=== PATIENT | female | born 1970 | race Asian ===

== ENCOUNTER 2021-04-01 18:43 | Emergency (ER) | payer BC ==
[~2021-04-01] VITALS: Ht 154.9 cm; Wt 68.0 kg
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
[2021-04-01] MEDS ORDERED: LIDOCAINE HCL/MPF 1% 30 ML VIAL IJ ONE (19:05)
[2021-04-01] MEDS ORDERED: ACET-2605 PO (19:17)
[2021-04-01] MEDS ORDERED: CEPH500T PO (19:17)
[2021-04-01] MEDS ORDERED: ACETAMINOPHEN ES 500 MG TABLET ONE (19:20)
--- NOTE | 2021-04-01 19:22 | NUR ---
REPORT GIVEN TO ADIEL FERNANDEZ FOR YAMILET.
[2021-04-01] MEDS ORDERED: ACETAMINOPHEN 325 MG TABLET PO ONE (19:30)
[2021-04-01] MEDS ORDERED: GELATIN SPONGE,ABSORBABLE 1 SPONGE SPONGE TP ONE ×2 (19:44→20:05)
--- NOTE | 2021-04-01 20:22 | NUR ---
pt is medically stable for d/c. bleeding is controlled and dressing applied, Patient discharged to home in stable condition. Written and verbal after care instructions given. Patient verbalizes understanding of instruction.
[2021-04-01 20:23] VITALS: BP 119/72
== END 2021-04-01 20:23 | disposition home or self-care (01) ==
LOC: ER 18:46
DX: S61.215A Laceration without foreign body of left ring finger without damage to nail, initial encounter (principal); Z98.890 Other specified postprocedural states; W26.0XXA Contact with knife, initial encounter; Y93.89 Activity, other specified; Y92.098 Other place in other non-institutional residence as the place of occurrence of the external cause; Y99.8 Other external cause status
CPT/HCPCS: 29130; 99283; A6403; J3490

== ENCOUNTER 2024-03-08 06:29 | Emergency (ER) | payer OTHER, BC ==
[~2024-03-08] VITALS: Ht 154.9 cm; Wt 72.6 kg
[~2024-03-08 06:29] MED LIST: ACET-2605 PO; CEPH500T PO
[2024-03-08 06:43] VITALS: BP 127/79; TEMP 98.9
[2024-03-08] MEDS ORDERED: CEPH500C2 PO (07:19)
[2024-03-08] MEDS ORDERED: TDAP [DIPH/PERTUSSIS/TET] 0.5 ML VIAL IM ONE (07:22)
[2024-03-08] MEDS ORDERED: CEPHALEXIN MONOHYDRATE 500 MG CAPSULE PO ONE (07:22)
[2024-03-08] MEDS: CEPHALEXIN MONOHYDRATE 500 MG CAPSULE PO ONE (07:28)
[2024-03-08] MEDS: TDAP [DIPH/PERTUSSIS/TET] 0.5 ML VIAL IM ONE (07:30)
[2024-03-08 07:38] VITALS: O2SAT 96
== END 2024-03-08 07:39 | disposition home or self-care (01) ==
LOC: ER 06:31
DX: S61.011A Laceration without foreign body of right thumb without damage to nail, initial encounter (principal); W26.0XXA Contact with knife, initial encounter; Y93.89 Activity, other specified; Y92.89 Other specified places as the place of occurrence of the external cause; Y99.8 Other external cause status
CPT/HCPCS: 90715